=== PATIENT | female | born 1970 ===

== ENCOUNTER 2021-11-16 14:01 | Emergency (ER) | payer SELFPAY ==
--- NOTE | 2021-11-16 15:22 | Emergency Department Report ---
Stated Complaint: LOWER ABD PAIN/NAUSEA/VOMITTING - HPI History of Present Illness: Right flank pain for about 3 to 4 days. Patient reports a history of kidney stones. Patient reports discolored urine darker than normal. Patient reports this pain feels like a prior kidney stone. - ROS Review of Systems: Right flank pain - Exam Physical Exam: Alert and oriented x4 patient uses cane for ambulation with gait. Nonlabored breathing. MSE screening note: Focused history and physical exam performed. Due to findings the following was ordered: MSE is complete. Orders placed. Patient will be further evaluated once a room opens up in the back to be seen by provider. My Active Orders 11/16/21 15:20 CT abdomen pelvis wo con Stat Complete Blood Count Auto Diff Stat Comprehensive Metabolic Panel Stat Urinalysis Complete Stat ED Disposition for MSE Condition: Stable
[2021-11-16 15:24] VITALS: BP 177/105
== END 2021-11-17 09:46 | disposition left against medical advice (07) ==
LOC: ED 14:01
DX: R10.9 Unspecified abdominal pain (principal); R11.2 Nausea with vomiting, unspecified; Z53.21 Procedure and treatment not carried out due to patient leaving prior to being seen by health care provider